=== PATIENT | female | born 1980 | race Caucasian/White ===

== ENCOUNTER → 2016-10-28 | Outpatient (CLI) | payer MEDICAID ==
[2016-10-28 15:11] LABS: Basophils % (A) 0 %; CH 30.4; CHCM 34.5; Eosinophils # (A) 0.1 k/uL (0-0.7); Eosinophils % (A) 1 %; HCT 41.6 % (34.0-46.0); HDW 2.73; HGB 14.2 gm/dL (11.4-16.0); Luc # (Auto) 0.21; Luc % (Auto) 3; Lymphocytes # (A) 1.8 k/uL (1.0-4.8); Lymphocytes % (A) 21 %; MCH 30.2 pg (25.0-35.0); MCHC 34.2 g/dL (31.0-37.0); MCV 88.3 fL (80.0-100.0); Mean Platelet Volume 7.4; Monocytes # (A) 0.4 k/uL (0-1.0); Monocytes % (A) 5 %; Neutrophils # (A) 6.1 k/uL (1.3-7.7); Neutrophils % (A) 70 %; RBC 4.71 m/uL (3.80-5.40); RDW 13.7 % (11.5-15.5); WBC 8.6 k/uL (3.8-10.6); WBC (Perox) 8.44
== END | disposition home or self-care (01) ==
LOC: LABPAT 14:34
PROVIDERS: ATTEND Obstetrics & Gynecology
DX: Z01.812 Encounter for preprocedural laboratory examination (principal)
CPT/HCPCS: 85025

== ENCOUNTER 2016-10-31 06:49 | Day surgery (SDC) | payer MEDICAID ==
[2016-10-29 12:57] VITALS: BMI 42.4
--- NOTE | 2016-10-30 09:46 | P.HPOB ---
History of Present Illness H&P Date: 10/30/16 Chief Complaint: Menorrhagia 36-year-old female presents for D&C, hysteroscopy, endometrial ablation with NovaSure due to menorrhagia. Review of Systems All systems: negative Constitutional: Denies chills, Denies fever Eyes: denies blurred vision, denies pain Ears, nose, mouth and throat: Denies headache, Denies sore throat Cardiovascular: Denies chest pain, Denies shortness of breath Respiratory: Denies cough Gastrointestinal: Denies abdominal pain, Denies diarrhea, Denies nausea, Denies vomiting Genitourinary: Denies dysuria, Denies hematuria Musculoskeletal: Denies myalgias Integumentary: Denies pruritus, Denies rash Neurological: Denies numbness, Denies weakness Psychiatric: Denies anxiety, Denies depression Endocrine: Denies fatigue, Denies weight change Past Medical History Past Medical History: GERD/Reflux, Hyperlipidemia, Pneumonia Additional Past Medical History / Comment(s): MIGRAINES, HX OVARIAN CYSTS, one seizure 15-20 yrs ago from xanax, hx ulcer, hx small hiatal hernia, IBS, "borderline diabetic-diet control", abnormal vaginal bleeding History of Any Multi-Drug Resistant Organisms: None Reported Past Surgical History: Cholecystectomy, Orthopedic Surgery Additional Past Surgical History / Comment(s): EGD and colonoscopy, RT KNEE SURG X2, abdonminal LIPO SUCTION, SEPTOPLASTY/SINUS SURG . Past Anesthesia/Blood Transfusion Reactions: Motion Sickness Additional Past Anesthesia/Blood Transfusion Reaction / Comment(s): vomiting from gag reflex(needs throat spray) and jumped off the table with colonoscopy, Past Psychological History: No Psychological Hx Reported Additional Psychological History / Comment(s): . Smoking Status: Current every day smoker Past Alcohol Use History: Rare Additional Past Alcohol Use History / Comment(s): started AGE 14(1993) SMOKED OFF & ON- currently smokes 3-4 cigarettes daily Past Drug Use History: None Reported - Past Family History Father Family Medical History: Osteoarthritis (OA) Additional Family Medical History / Comment(s): chronic back problems Mother Family Medical History: No Reported History Medications and Allergies Home Medications Medication Instructions Recorded Confirmed Type Ibuprofen [Motrin] 400 mg PO Q6HR PRN 06/30/14 10/29/16 History Omeprazole [PriLOSEC] 20 mg PO 1730 06/30/14 10/29/16 History Ondansetron [Zofran] 4 mg PO Q8HR PRN 06/30/14 10/29/16 History Hydrocodone/Acetaminophen 1 tab PO TID PRN 01/01/15 10/29/16 History [Hydrocodon-Acetaminoph 7.5-325] Loratadine [Claritin] 10 mg PO 1730 01/01/15 10/29/16 History Montelukast [Singulair] 10 mg PO DAILY 01/01/15 10/29/16 History Dicyclomine [Bentyl] 10 mg PO BID 10/29/16 10/29/16 History Gemfibrozil [Lopid] 600 mg PO AC-BID 10/29/16 10/29/16 History Ranitidine HCl [Zantac] 150 mg PO BID 10/29/16 10/29/16 History Allergies Allergy/AdvReac Type Severity Reaction Status Date / Time influenza virus vaccine, Allergy Severe Swelling Verified 10/29/16 12:41 specific [influenza virus vacc,specific] pertussis vaccine,fluid Allergy Severe Swelling Verified 10/29/16 12:41 Sulfa (Sulfonamide Allergy Severe Anaphylaxis, Verified 10/29/16 12:41 Antibiotics) Throat closes sulfamethoxazole Allergy Severe Anaphylaxis, Verified 10/29/16 12:41 [From Bactrim] Throat closes trimethoprim [From Bactrim] Allergy Severe Anaphylaxis, Verified 10/29/16 12:41 Throat closes Exam Osteopathic Statement: *. No significant issues noted on an osteopathic structural exam other than those noted in the History and Physical/Consult. Heart: Regular rate and rhythm Lungs: Clear to auscultation bilaterally Abdomen: Soft, nontender Extremities: Negative Homans sign Assessment and Plan (1) Menorrhagia Status: Acute Plan: 1. D&C, hysteroscopy, endometrial ablation with NovaSure
[~2016-10-31 06:49] MED LIST: DEXAMETHASONE SOD PHOSPHATE 10 MG/ML 1 ML VIAL IV ONE; HYDROmorphone 1 MG/ML 1 ML SYRINGE IVP PRN; LACTATED RINGERS 1,000 ML IV SCH; MIDAZOLAM 2 MG/2 ML VIAL IV PRN; ONDANSETRON 4 MG/2 ML VIAL IVP ONE; Pre Op ABX Message 1 EACH MISC MISCELLANE ONE; SCOPOLAMINE 1.5MG/72HR PATCH TRANSDERM ONE
[2016-10-31 07:27] LABS: Glucose,Whole Blood 118 mg/dL (75-99)
[2016-10-31] MEDS ORDERED: MIDAZOLAM 2 MG/2 ML VIAL ONE (07:49)
[2016-10-31] MEDS ORDERED: fentaNYL (PF) 50 MCG/ML 2 ML AMP ONE (07:49)
[2016-10-31] MEDS ORDERED: PROPOFOL 10 MG/ML 20 ML VIAL IV ONE (07:49)
[2016-10-31] MEDS ORDERED: SUCCINYLCHOLINE CHLORIDE 100 MG/5 ML SYR IV ONE (07:49)
--- NOTE | 2016-10-31 08:30 | P.OP ---
Date of Procedure: 10/31/16 Preoperative Diagnosis: 1. Menorrhagia Postoperative Diagnosis: 1. Menorrhagia Procedure(s) Performed: D&C hysteroscopy Anesthesia: COLIN Surgeon: Anu Luu Estimated Blood Loss (ml): 5 Urine output (ml): 20 Pathology: other (uterine currettings) Condition: stable Disposition: PACU Operative Findings: cervical stenosis Description of Procedure: Patient is taken the operating room where general anesthesia was obtained without difficulty. She is prepped and draped in normal sterile fashion dorsal lithotomy position, legs placed In stirrups. Bladder was drained of all urine. Weighted speculum placed in the vagina and the anterior lip the cervix was grasped with single-tooth tenaculum. The uterus was attempted to be sounded but I could not pass the sound through the internal cervical os. The smallest cervical dilator was used to attempt to find the internal cervical os to start dilating. This was unsuccessful. Hysteroscopy was used to try and hydrodilated was also unsuccessful. I went back to the Hegar dilators and attempted to dilate again. I did get through and dilated to #6 Hegar dilator but when I performed her hysteroscopy was found that I was in the abdomen. Perforation was immediately identified. Sharp curet was gently used to obtain some endocervical possible endometrial curettings, careful not to go into the abdominal cavity. Rest of the procedure was abandoned. When I was attempting to dilate her cervix the single-tooth tenaculum did cause a laceration in the anterior lip. This was repaired with 2-0 Vicryl in a running locked fashion. Excellent hemostasis was achieved. Tolerated the procedure well. Sponge and instrument counts are correct 2. She was taken to recovery in stable condition.
[2016-10-31] MEDS ORDERED: KETOROLAC 30 MG/ML 1 ML VIAL IVP ONE (08:42)
[2016-10-31 09:00] VITALS: TEMP 97
[2016-10-31 09:02] VITALS: RESP 16
[2016-10-31 09:36] VITALS: BP 132/93; PULSE 86
== END 2016-10-31 09:48 | disposition home or self-care (01) ==
LOC: OR 06:49
PROVIDERS: ATTEND Obstetrics & Gynecology
DX: N85.9 Noninflammatory disorder of uterus, unspecified (principal); N88.2 Stricture and stenosis of cervix uteri; N92.0 Excessive and frequent menstruation with regular cycle; K21.9 Gastro-esophageal reflux disease without esophagitis; E78.5 Hyperlipidemia, unspecified; R73.03 Prediabetes; F17.210 Nicotine dependence, cigarettes, uncomplicated; Z79.899 Other long term (current) drug therapy; Z88.2 Allergy status to sulfonamides; Z88.7 Allergy status to serum and vaccine
CPT/HCPCS: 81025; 88305; 58558; J2250; J1100; J2405; J3010; J1885; J1170; J0330; J2704

== ENCOUNTER 2017-01-22 05:53 | Observation (INO) | payer MEDICAID ==
[2017-01-16 12:09] VITALS: BMI 41.5
--- NOTE | 2017-01-21 16:48 | P.HPOB ---
History of Present Illness H&P Date: 01/21/17 Chief Complaint: menorrhagia 36 year old G0 presents for TLH and BL salpingectomy with da jared due to menorrhagia. Review of Systems All systems: negative Constitutional: Denies chills, Denies fever Eyes: denies blurred vision, denies pain Ears, nose, mouth and throat: Denies headache, Denies sore throat Cardiovascular: Denies chest pain, Denies shortness of breath Respiratory: Denies cough Gastrointestinal: Denies abdominal pain, Denies diarrhea, Denies nausea, Denies vomiting Genitourinary: Denies dysuria, Denies hematuria Musculoskeletal: Denies myalgias Integumentary: Denies pruritus, Denies rash Neurological: Denies numbness, Denies weakness Psychiatric: Denies anxiety, Denies depression Endocrine: Denies fatigue, Denies weight change Past Medical History Past Medical History: GERD/Reflux, Osteoarthritis (OA) Additional Past Medical History / Comment(s): MIGRAINES, SEASONAL ALLERGIES, 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 History of Any Multi-Drug Resistant Organisms: None Reported Past Surgical History: Cholecystectomy, Orthopedic Surgery Additional Past Surgical History / Comment(s): EGD, RT KNEE SURG X2, ABD.LIPO SUCTION ., SEPTOPLASTY & SINUS SURG . Past Anesthesia/Blood Transfusion Reactions: Previous Problems w/ Anesthesia, Motion Sickness Additional Past Anesthesia/Blood Transfusion Reaction / Comment(s): AFTER PTS D& C DECEMBER 2016 SHE HAD STIFF, PAINFUL MUSCLES POST ANESTH. Past Psychological History: Anxiety, Depression Additional Psychological History / Comment(s): NO PROBLEMS NOW. Smoking Status: Current some day smoker Past Alcohol Use History: None Reported Past Drug Use History: None Reported - Past Family History Father Family Medical History: Osteoarthritis (OA) Additional Family Medical History / Comment(s): chronic back problems Mother Family Medical History: Diabetes Mellitus, Hyperlipidemia, Hypertension Medications and Allergies Home Medications Medication Instructions Recorded Confirmed Type Ibuprofen [Motrin] 400 mg PO Q6HR PRN 06/30/14 01/16/17 History Omeprazole [PriLOSEC] 20 mg PO 1730 06/30/14 01/16/17 History Ondansetron [Zofran] 4 mg PO Q8HR PRN 06/30/14 01/16/17 History Hydrocodone/Acetaminophen 1 tab PO TID PRN 01/01/15 01/16/17 History [Hydrocodon-Acetaminoph 7.5-325] Loratadine [Claritin] 10 mg PO 1730 01/01/15 01/16/17 History Montelukast [Singulair] 10 mg PO DAILY 01/01/15 01/16/17 History Dicyclomine [Bentyl] 10 mg PO BID 10/29/16 01/16/17 History Gemfibrozil [Lopid] 600 mg PO AC-BID 10/29/16 01/16/17 History Ranitidine HCl [Zantac] 150 mg PO BID 10/29/16 01/16/17 History Allergies Allergy/AdvReac Type Severity Reaction Status Date / Time influenza virus vaccine, Allergy Severe Swelling Verified 01/16/17 12:00 specific [influenza virus vacc,specific] pertussis vaccine,fluid Allergy Severe Swelling Verified 01/16/17 12:00 Sulfa (Sulfonamide Allergy Severe Anaphylaxis, Verified 01/16/17 12:00 Antibiotics) Throat closes sulfamethoxazole Allergy Severe Anaphylaxis, Verified 01/16/17 12:00 [From Bactrim] Throat closes trimethoprim [From Bactrim] Allergy Severe Anaphylaxis, Verified 01/16/17 12:00 Throat closes Exam Osteopathic Statement: *. No significant issues noted on an osteopathic structural exam other than those noted in the History and Physical/Consult. HEart: RRR Lungs: CTAB Abdomen: soft, nontender Extremeties: neg gaby's Assessment and Plan (1) Menorrhagia Status: Acute Plan: 1. TLH and bilateral salpingectomy with da jraed
[~2017-01-22 05:53] MED LIST changes: +LIDOCAINE 1% 20 ML VIAL (10MG/ML) FOR IV START INTRADERMA PRN; -Pre Op ABX Message 1 EACH MISC MISCELLANE ONE; +ceFAZolin 2 GM in SODIUM CHLORIDE 0.9% 100 ML IVPB ONE
[2017-01-22] MEDS ORDERED: LACTATED RINGERS 1,000 ML IV ONE ×2 (06:29→08:41)
[2017-01-22] MEDS ORDERED: ALBUTEROL INHALER 60 PUFF/8 GM INHALER INHALATION ONE (07:21)
[2017-01-22] MEDS ORDERED: ACETAMINOPHEN IV (For NPO) 1,000 MG/100 ML VIAL ONE (07:21)
[2017-01-22] MEDS ORDERED: ONDANSETRON 4 MG/2 ML VIAL ONE (07:21)
[2017-01-22] MEDS ORDERED: LIDOCAINE 1% INJ 10MG/ML (20 ML MDV) ONE (07:21)
[2017-01-22] MEDS ORDERED: NEOSTIGMINE 1 MG/ML 10 ML VIAL ONE (07:21)
[2017-01-22] MEDS ORDERED: SUCCINYLCHOLINE CHLORIDE VIAL 200 MG/10 ML VIAL IV ONE (07:21)
[2017-01-22] MEDS ORDERED: fentaNYL (PF) 50 MCG/ML 2 ML AMP ONE (07:21)
[2017-01-22] MEDS ORDERED: ROCURONIUM BROMIDE 10 MG/ML 10 ML VIAL IV ONE (07:21)
[2017-01-22] MEDS ORDERED: MIDAZOLAM 2 MG/2 ML VIAL ONE (07:21)
[2017-01-22] MEDS ORDERED: GLYCOPYRROLATE 0.2 MG/ML 2 ML VIAL ONE (07:21)
[2017-01-22] MEDS ORDERED: HYDROmorphone (PF) 1 MG/ML ONE (07:21)
[2017-01-22] MEDS ORDERED: LABETALOL 5 MG/ML VIAL MDV ONE (07:21)
[2017-01-22] MEDS ORDERED: PROPOFOL 10 MG/ML 20 ML VIAL IV ONE (07:21)
[2017-01-22] MEDS ORDERED: BUPIVACAINE (PF) 0.25% 30 ML VIAL SQ ONE (07:53)
--- NOTE | 2017-01-22 09:32 | P.OP ---
Date of Procedure: 01/22/17 Preoperative Diagnosis: 1. Menorrhagia Postoperative Diagnosis: 1. Menorrhagia Procedure(s) Performed: Total laparoscopic hysterectomy bilateral salpingectomy using da Jeaneth Implants: Anesthesia: RAMSESA Surgeon: Anu Luu Earrings Fabricator #1: Marques Johnson Estimated Blood Loss (ml): 5 IV fluids (ml): 1,000 Urine output (ml): 200 Pathology: other (Uterus, cervix, bilateral tubes) Condition: stable Disposition: PACU Indications for Procedure: Operative Findings: Normal uterus, normal fallopian tubes, normal ovaries Description of Procedure: Patient taken the operating room where general anesthesia was obtained without difficulty. She is prepped and draped in normal sterile fashion dorsal lithotomy position, legs placed in the Wenceslao stirrups. Weighted speculum placed in the vagina and the anterior lip the cervix was grasped with single- tooth tenaculum. The uterus sounded to 8 cm and the cervix diameter was 2.5 cm. The appropriate manipulator tip and ring were placed on the Kandy manipulator. The Kandy manipulator was then placed in the uterus. Arzola catheter was also placed. Attention was then turned to the abdomen and gloves were changed. A 5 mm supraumbilical incision was made the scalpel and a 5 mm optical trocar was placed under direct visualization. 10 cm to the right of this and 2 cm down a 5 mm incision was made and 8 mm da Jeaneth port was placed under direct visualization. Same measurements on the opposite side of the patient's abdomen, the 5 mm incision was made and 8 mm da Jeaneth port was placed under direct visualization. In the left upper quadrant a 10 mm incision was made and a 10 mm optical trocar was placed under direct visualization. The 5 mm optical trocar was then replaced with the 8 mm da Jeaneth camera port. The robot was docked on patient's right side. The camera was introduced and then the monopolar curved scissor and Maryland bipolar placed under direct visualization. I broke scrub and went to the physician console. The left fallopian tube was elevated and the mesosalpinx was cauterized with the Maryland bipolar and cut with monopolar curved scissors. The round ligament and utero-ovarian ligament were then cauterized with the Maryland bipolar and cut with the monopolar curved scissors. The posterior leaf of the broad ligament was taken down using the monopolar curved scissors. Anterior leaf of the broad ligament was then taken down using the monopolar curved scissors. The uterine artery was cauterized with the Maryland bipolar and cut with monopolar curved scissors. The bladder flap was then started using the monopolar curved scissors. Attention was then turned to the right side of the patient's anatomy and the right fallopian tube was elevated and the right mesosalpinx was cauterized with the Maryland bipolar and cut with monopolar curved scissors. The right round ligament and right utero-ovarian ligament was cauterized with the [place] bipolar and cut with monopolar curved scissors. Posterior leaf of the broad ligament was taken down using the monopolar curved scissors and the anterior leaf was taken down using the monopolar curved scissors. The uterine artery was cauterized the Maryland bipolar cut with monopolar curved scissors. The bladder flap was then finished on this side. Anterior colpotomy was made using the monopolar curved scissors. The rest of the uterus was from the vaginal cuff by following the ring around with the monopolar curved scissors through the uterosacral ligaments back to the anterior portion. Once the uterus and cervix were amputated they were pulled through the vaginal cuff. Hemostasis was assured. The instruments were changed for the Cardier forcep and the riana suture cut. The vaginal cuff was then closed using O stratafix barbed suture in a running fashion. Hemostasis was again assured and the pelvis was irrigated. All instruments were removed from the abdomen and the robot was undocked. I scrubbed back in to perform a cystoscopy. There were jets from both ureteral orifices. The abdominal incisions were closed with 4-0 Vicryl in a subcuticular fashion. Patient tolerated the procedure well, sponge and instrument counts correct 2 and she was taken to recovery room in stable condition condition
[2017-01-22] MEDS ORDERED: PROMETHAZINE INJ 25 MG/ML 1 ML VIAL IVPB ONE (10:00)
[2017-01-22] MEDS ORDERED: LEVALBUTEROL NEB 1.25 MG/3 ML AMP INHALATION ONE (10:02)
[2017-01-22] MEDS ORDERED: LABETALOL 5 MG/ML VIAL MDV IVP ONE (10:03)
[2017-01-22] MEDS ORDERED: ENALAPRILAT 1.25 MG/ML 1 ML VIAL IVP ONE (10:08)
--- NOTE | 2017-01-22 10:33 | XR ---
EXAMINATION TYPE: XR chest 1V DATE OF EXAM: 01/22/2017 COMPARISON: Postop HISTORY: Hematemesis TECHNIQUE: Single frontal view of the chest is obtained. FINDINGS: Patient is rotated. There are overlying cardiac leads. Interstitium appears somewhat promi nent. No pneumothorax or pleural effusion evident. Retrocardiac increased density is noted. IMPRESSION: Correlate for left lower lobe atelectasis versus edema or pneumonia. There is a componen t of interstitial lung disease, consider interstitial edema. Follow-up recommended.
[2017-01-22] MEDS ORDERED: Acetaminophen-Codeine 300-30mg TAB PO PRN ×2 (11:08)
--- NOTE | 2017-01-22 11:24 | P.PN ---
Progress Note - Text 11:15 anesthesia. Patient is status post robotic-assisted laparoscopic RAYA/ BSO. Patient had a great deal of nausea and retching in the operating room postextubation with her protective airway reflexes obviously intact. A chest x- ray was obtained in the recovery room to rule out aspiration. The patient was also given and Xopenex updraft and hypertension was treated with Vasotec 1.25 mg and Trandate 10 mg IV to good effect. Chest x-ray was poorly penetrated patient was rotated and there was no definite evidence of aspiration or interstitial edema although these were entertained by the radiologist reading. Currently patient's postoperative discomfort is well-controlled, she is no longer nauseated, sats are in the upper 90s on room air and she is not tachypneic. Plan: Transfer to Peds for routine post surgical care.
[2017-01-22] MEDS: LACTATED RINGERS 1,000 ML IV SCH ×2 (12:13→21:17)
[2017-01-22] MEDS: KETOROLAC 30 MG/ML 1 ML VIAL IVP PRN ×2 (12:23→18:20)
[2017-01-22] MEDS: DICYCLOMINE 10 MG CAP PO SCH ×2 (12:24→21:17)
[2017-01-22] MEDS: ONDANSETRON 4 MG/2 ML VIAL IVP PRN ×2 (16:48→22:22)
[2017-01-22] MEDS: GEMFIBROZIL 600 MG TAB PO SCH (16:49)
[2017-01-22] MEDS ORDERED: PANTOPRAZOLE 40 MG TABLET PO SCH (17:30)
[2017-01-22] MEDS ORDERED: LORATADINE 10 MG TAB PO SCH (17:30)
[2017-01-22] MEDS ORDERED: ALPRAZolam 0.5 MG TAB PO ONE (21:00)
[2017-01-22] MEDS ORDERED: SENNOSIDES-DOCUSATE SODIUM 1 EACH TAB PO SCH (21:00)
[2017-01-22] MEDS ORDERED: FAMOTIDINE 20 MG TAB PO SCH (21:00)
[2017-01-22] MEDS: HYDROcodone/APAP 5-325MG 1 EACH TAB PO PRN (21:03)
[2017-01-22 21:27] VITALS: PULSE 84
[2017-01-22 23:46] VITALS: BP 115/70; RESP 18; TEMP 98
[2017-01-23] MEDS: KETOROLAC 30 MG/ML 1 ML VIAL IVP PRN (04:13)
--- NOTE | 2017-01-23 07:25 | P.DS ---
Providers Date of admission: 01/22/17 23:22 Expected date of discharge: 01/23/17 Attending physician: Anu Luu Primary care physician: Stated None - Discharge Diagnosis(es) (1) Menorrhagia Current Visit: No Status: Resolved (2) History of robot-assisted laparoscopic hysterectomy Current Visit: Yes Status: Acute Hospital Course: Patient presented for TLH B/L salpingectomy with da jared for menorrhagia. She underwent this procedure without complication. She is having a little nausea but tolerating reg diet and passing flatus. Ambulating and voiding without difficulty. She will be discharged home POD #1 in stable condition to follow up with me in 3 weeks. Plan - Discharge Summary New Discharge Prescriptions: New HYDROcodone/APAP 7.5-325MG [[place] 7.5-325] 1 tab PO Q4H PRN #30 tab PRN Reason: Pain Ibuprofen [Motrin] 600 mg PO Q6HR PRN #30 tab PRN Reason: Mild Pain Or Fever >= 100.5 No Action Ondansetron [Zofran] 4 mg PO Q8HR PRN PRN Reason: Nausea Omeprazole [PriLOSEC] 20 mg PO DAILY Ibuprofen [Motrin] 400 mg PO Q6HR PRN PRN Reason: Pain Montelukast [Singulair] 10 mg PO DAILY Loratadine [Claritin] 10 mg PO DAILY Hydrocodone/Acetaminophen [Hydrocodon-Acetaminoph 7.5-325] 1 tab PO TID PRN PRN Reason: Pain Dicyclomine [Bentyl] 10 mg PO BID Gemfibrozil [Lopid] 600 mg PO AC-BID Ranitidine HCl [Zantac] 150 mg PO BID Discharge Medication List Ibuprofen [Motrin] 400 mg PO Q6HR PRN 06/30/14 [History] Omeprazole [PriLOSEC] 20 mg PO DAILY 06/30/14 [History] Ondansetron [Zofran] 4 mg PO Q8HR PRN 06/30/14 [History] Hydrocodone/Acetaminophen [Hydrocodon-Acetaminoph 7.5-325] 1 tab PO TID PRN [History] Loratadine [Claritin] 10 mg PO DAILY 01/01/15 [History] Montelukast [Singulair] 10 mg PO DAILY 01/01/15 [History] Dicyclomine [Bentyl] 10 mg PO BID 10/29/16 [History] Gemfibrozil [Lopid] 600 mg PO AC-BID 10/29/16 [History] Ranitidine HCl [Zantac] 150 mg PO BID 10/29/16 [History] HYDROcodone/APAP 7.5-325MG [[place] 7.5-325] 1 tab PO Q4H PRN #30 tab 01/23/17 [Rx ] Ibuprofen [Motrin] 600 mg PO Q6HR PRN #30 tab 01/23/17 [Rx] Follow up Appointment(s)/Referral(s): Anu Luu DO [Doctor of Osteopathic Medicine] - 1 Week Patient Instructions/Handouts: *[facility] - (Anesthesia) Discharge Instructions Outpatient Surgery, *[facility] - Scopalamine Patch Instructions Discharge Disposition: HOME SELF-CARE
[2017-01-23 07:36] LABS: Basophils % (A) 0 %; CH 29.2; CHCM 33.4; Eosinophils # (A) 0.1 k/uL (0-0.7); Eosinophils % (A) 1 %; HCT 36.1 % (34.0-46.0); HDW 2.62; HGB 12.3 gm/dL (11.4-16.0); Luc # (Auto) 0.18; Luc % (Auto) 2; Lymphocytes # (A) 2.5 k/uL (1.0-4.8); Lymphocytes % (A) 27 %; MCH 29.9 pg (25.0-35.0); MCV 87.8 fL (80.0-100.0); Mean Platelet Volume 7.8; Monocytes # (A) 0.3 k/uL (0-1.0); Monocytes % (A) 4 %; Neutrophils # (A) 6.2 k/uL (1.3-7.7); Neutrophils % (A) 67 %; RBC 4.12 m/uL (3.80-5.40); RDW 13.9 % (11.5-15.5); WBC 9.3 k/uL (3.8-10.6); WBC (Perox) 9.46
[2017-01-23] MEDS: GEMFIBROZIL 600 MG TAB PO SCH (07:56)
[2017-01-23] MEDS: HYDROcodone/APAP 5-325MG 1 EACH TAB PO PRN (08:02)
[2017-01-23] MEDS ORDERED: MONTELUKAST 10 MG TAB PO SCH (09:00)
== END 2017-01-23 08:45 | disposition home or self-care (01) ==
LOC: OR 05:53 → 6PED 09:52 → OR 23:21 → 6PED 23:22
PROVIDERS: ADMIT Obstetrics & Gynecology; ATTEND Obstetrics & Gynecology
DX: D25.2 Subserosal leiomyoma of uterus (principal); N92.0 Excessive and frequent menstruation with regular cycle; N84.0 Polyp of corpus uteri; I97.3 Postprocedural hypertension; R11.0 Nausea; K21.9 Gastro-esophageal reflux disease without esophagitis; E78.00 Pure hypercholesterolemia, unspecified; M19.90 Unspecified osteoarthritis, unspecified site; Z79.899 Other long term (current) drug therapy; Z88.1 Allergy status to other antibiotic agents; Z88.2 Allergy status to sulfonamides; Z88.7 Allergy status to serum and vaccine; F17.210 Nicotine dependence, cigarettes, uncomplicated
CPT/HCPCS: 58571; S2900; 71010; 81025; 85025; 86850; 86900; 86901; 88307

== ENCOUNTER → 2017-11-12 | Outpatient (CLI) | payer MEDICAID ==
--- NOTE | 2017-11-12 15:08 | ECHOS ---
STRESS ECHOCARDIOGRAM INDICATIONS: Chest pain. BASELINE HEART RATE: 89 BASELINE BLOOD PRESSURE: 110/79 MAXIMUM HEART RATE: 164 MAXIMUM BLOOD PRESSURE: 185/70 85% MPHR: 155 100% MPHR: 182 METS: 7.9 MAXIMUM STAGE REACHED: II TOTAL EXERCISE TIME: 6:30 CLINICAL INFORMATION: STRESS DATA: Pretesting physical examination showed a heart rate of 89, pressure is 110/79 mmHg. Baseline EKG showed sinus mechanism. The patient exercised on the treadmill according to Giovanni protocol for a total of 6 minutes and 30 seconds and achieved 7.9 METS with max heart rate was 164, which is about 90% of maximum predicted heart rate. Maximum blood pressure was 185/70. Clinically, the patient did not have any symptoms of chest pain or discomfort. The EKG did not show any significant ST or T- wave abnormalities consistent with ischemia. ECHOCARDIOGRAM IMAGES: On echocardiogram images from parasternal long axis view, parasternal short axis view, apical 4 chambers and apical 2 chamber view were obtained as a baseline images, at the peak of the heart rate as well as on recovery. The echocardiogram images showed good augmentation in the left ventricular systolic function without any evidence of wall motion abnormalities consistent with ischemia. CONCLUSION: 1. Good exercise tolerance. 2. Normal EKG in response to exercise. 3. Normal echocardiogram in response to exercise. 4. Essentially normal stress echocardiogram. MMODL / IJN: [id number] /
== END | disposition home or self-care (01) ==
LOC: RADNMMAIN 09:00
PROVIDERS: ATTEND Internal Medicine Geriatric Medicine
DX: R07.9 Chest pain, unspecified (principal)
CPT/HCPCS: 93351

== ENCOUNTER → 2018-12-03 | Outpatient (CLI) | payer MEDICAID ==
--- NOTE | 2018-12-03 13:04 | XR ---
Right wrist HISTORY: Pain or graph 4 views of the right wrist Bone mineralization, joint spaces and alignment are maintained. IMPRESSION: No fracture or dislocation.
== END | disposition home or self-care (01) ==
LOC: RADXRMAIN 11:00
PROVIDERS: ATTEND Internal Medicine Geriatric Medicine
DX: M25.531 Pain in right wrist (principal)

== ENCOUNTER 2019-01-14 11:41 | Day surgery (SDC) | payer MEDICAID ==
[2019-01-13 10:24] VITALS: BMI 40.7
[~2019-01-14 11:41] MED LIST changes: -DEXAMETHASONE SOD PHOSPHATE 10 MG/ML 1 ML VIAL IV ONE; -HYDROmorphone 1 MG/ML 1 ML SYRINGE IVP PRN; -MIDAZOLAM 2 MG/2 ML VIAL IV PRN; -ONDANSETRON 4 MG/2 ML VIAL IVP ONE; -SCOPOLAMINE 1.5MG/72HR PATCH TRANSDERM ONE; -ceFAZolin 2 GM in SODIUM CHLORIDE 0.9% 100 ML IVPB ONE
[2019-01-14] MEDS ORDERED: LACTATED RINGERS 1,000 ML IV ONE (12:27)
[2019-01-14 12:35] VITALS: TEMP 98.4
[2019-01-14] MEDS ORDERED: ONDANSETRON 4 MG/2 ML VIAL IVP ONE (12:45)
[2019-01-14] MEDS ORDERED: MIDAZOLAM 2 MG/2 ML VIAL ONE (12:48)
[2019-01-14] MEDS ORDERED: LIDOCAINE 1% INJ 10MG/ML (20 ML MDV) ONE (12:48)
[2019-01-14] MEDS ORDERED: PROPOFOL 10 MG/ML 20 ML VIAL IV ONE (12:48)
--- NOTE | 2019-01-14 13:00 | P.PCN ---
Date of Procedure: 01/14/19 Procedure(s) Performed: BRIEF HISTORY: Patient is a 38-year-old, pleasant, white female, scheduled for an upper endoscopy as a part of evaluation of persistent history of GERD lately has been having intermittent nausea vomiting almost on a daily basis. She does complain of epigastric discomfort but denies any heartburn. Presently on Nexium 20 mg daily and Zantac as needed and remains symptomatic.. PROCEDURE PERFORMED: Esophagogastroduodenoscopy with biopsy. PREOPERATIVE DIAGNOSIS: GERD/intermittent episodes of nausea vomiting of several months duration. IV sedation per anesthesia. PROCEDURE: After informed consent was obtained, the patient was brought into the endoscopy unit. IV sedation was administered by Anesthesia under continuous monitoring. Initially the Olympus GIF-140 video endoscope was inserted into the mouth. Esophagus intubated without any difficulty. It was gradually advanced into the stomach and duodenum and carefully examined. The bulb and the second part of the duodenum appeared normal. His were done from the duodenum to rule out celiac disease. The scope at this time was withdrawn to the stomach, adequately insufflated with air, and upon careful examination, mucosa of the antrum, had patchy areas of erythema and biopsies were done from this area. The body, cardia and the fundus appeared normal. The scope was then withdrawn into the esophagus. The GE junction was located at 39 cm from the incisors. Small sliding Hiatal hernia noted. The esophagus appeared normal. There were no erosions or ulcerations seen, biopsies were done from the distal esophagus and the patient tolerated the procedure well. IMPRESSION: 1. Minimal antral gastritis. 2. Small sliding Hiatal hernia but no evidence of esophagitis or Fitzgerald's esophagus. RECOMMENDATIONS: The findings of this examination were discussed with the patient as well as a family. She was advised to follow with the biopsy results. She was advised to increase the Nexium to 20 mg twice daily half hour before breakfast and dinnertime and follow antireflux measures. She can take Zantac at bedtime if needed..
[2019-01-14 13:20] VITALS: BP 105/75; PULSE 86; RESP 18
== END 2019-01-14 13:34 | disposition home or self-care (01) ==
LOC: ORWHC2ENDO 11:41
PROVIDERS: ATTEND Internal Medicine Gastroenterology
DX: K29.50 Unspecified chronic gastritis without bleeding (principal); K44.9 Diaphragmatic hernia without obstruction or gangrene; K21.9 Gastro-esophageal reflux disease without esophagitis; I10 Essential (primary) hypertension; M19.90 Unspecified osteoarthritis, unspecified site; Z79.899 Other long term (current) drug therapy; Z88.2 Allergy status to sulfonamides; Z88.7 Allergy status to serum and vaccine
CPT/HCPCS: 88305; 43239; J2250; J2405; J2001; J2704

== ENCOUNTER → 2020-06-26 | Outpatient (CLI) | payer OTHER ==
[2020-06-26 14:34] LABS: Basophils # (A) 0.1 k/uL (0-0.2); Basophils % (A) 1 %; Eosinophils # (A) 0.2 k/uL (0-0.7); Eosinophils % (A) 3 %; HCT 44.6 % (34.0-46.0); HGB 14.7 gm/dL (11.4-16.0); Lymphocytes # (A) 1.9 k/uL (1.0-4.8); Lymphocytes % (A) 33 %; MCH 31.9 pg (25.0-35.0); MCHC 32.9 g/dL (31.0-37.0); MCV 96.8 fL (80.0-100.0); Mean Platelet Volume 7.8; Monocytes # (A) 0.3 k/uL (0-1.0); Monocytes % (A) 5 %; Neutrophils # (A) 3.4 k/uL (1.3-7.7); Neutrophils % (A) 57 %; Platelet Count 278 k/uL (150-450); RBC 4.61 m/uL (3.80-5.40); RDW 12.7 % (11.5-15.5); WBC 5.9 k/uL (3.8-10.6)
[2020-06-27 02:11] LABS: African American GFR (CKD) 106.1 (60.0-200.0); Albumin 4.3 g/dL (3.80-4.90); Albumin/Globulin Ratio 2.26 (1.60-3.17); Anion Gap 5.3 mmol/L (4.00-12.00); Calcium 9.2 mg/dL (8.7-10.3); Carbon Dioxide 26.7 mmol/L (21.6-31.8); Chol/HDL Ratio 3.74; Globulin 1.9 g/dL (1.6-3.3); Non-African American GFR(CKD) 91.6 (60.0-200.0); Potassium 4.1 mmol/L (3.5-5.5); Total Bilirubin 0.4 mg/dL (0.2-1.2); Total Protein 6.2 g/dL (6.2-8.2)
== END | disposition home or self-care (01) ==
LOC: LABWHC1 14:10
PROVIDERS: ATTEND Internal Medicine
DX: E78.5 Hyperlipidemia, unspecified (principal); D64.9 Anemia, unspecified
CPT/HCPCS: 36415; 80053; 80061; 85025

== ENCOUNTER → 2021-01-19 | Outpatient (CLI) | payer BC ==
[2021-01-19 16:26] LABS: HGB 15.1 g/dL (12.0-15.0); MCH 31.9 pg (27.0-32.0); MCHC 33.6 g/dL (32.0-37.0); MCV 94.9 fL (80.0-97.0); Mean Platelet Volume 10.9 fL (9.5-12.2); Platelet Count 245 X 10*3/uL (140-440); RBC 4.74 X 10*6/uL (4.10-5.20); RDW 12.4 % (11.5-14.5); WBC 5.81 X 10*3/uL (4.50-10.00)
[2021-01-19 18:46] LABS: African American GFR (CKD) 106.1 (60.0-200.0); Albumin 4.2 g/dL (3.80-4.90); Albumin/Globulin Ratio 1.75 (1.60-3.17); Anion Gap 7.2 mmol/L (4.00-12.00); BUN/Creat Ratio 13.75 Ratio (12.00-20.00); Calcium 9.6 mg/dL (8.7-10.3); Carbon Dioxide 24.8 mmol/L (21.6-31.8); Chol/HDL Ratio 3.73; Globulin 2.4 g/dL (1.6-3.3); LDL Cholesterol,Calculated 108.2 mg/dL (0.0-131.0); Magnesium 1.6 mg/dL (1.5-2.4); Non-African American GFR(CKD) 91.6 (60.0-200.0); Potassium 4.2 mmol/L (3.5-5.5); Total Bilirubin 0.4 mg/dL (0.2-1.2); Total Protein 6.6 g/dL (6.2-8.2); VLDL Calculation 14.8 mg/dL (5.00-40.00)
== END | disposition home or self-care (01) ==
LOC: LABWHC1 11:38
PROVIDERS: ATTEND Internal Medicine
DX: R42 Dizziness and giddiness (principal); E78.5 Hyperlipidemia, unspecified
CPT/HCPCS: 36415; 80053; 80061; 83735; 85027

== ENCOUNTER → 2022-05-01 | Outpatient (CLI) | payer BC ==
--- NOTE | 2022-05-02 07:47 | MM ---
Reason for Exam: Screening (asymptomatic). Patient History: Menarche at age 11. Hysterectomy at age 36. Risk Values: Kimberly 5 year model risk: 0.5%. NCI Lifetime model risk: 7.1%. Tissue Density: The breast tissue is heterogeneously dense. This may lower the sensitivity of mammography. Findings: Analyzed By CAD. There is no suspicious group of microcalcifications or new suspicious mass in either breast. Overall Assessment: Negative, BI-RAD 1 Management: Screening Mammogram of both breasts in 1 year. A clinical breast exam by your physician is recommended on an annual basis and results should be correlated with mammographic findings. Electronically signed and approved by: Agustin Gupta M.D. Radiologis
== END | disposition home or self-care (01) ==
LOC: RADMAMWWP 16:02
PROVIDERS: ATTEND Family Medicine
DX: Z12.31 Encounter for screening mammogram for malignant neoplasm of breast (principal)
CPT/HCPCS: 77063; 77067

== ENCOUNTER → 2023-12-10 | Outpatient (CLI) | payer OTHER ==
--- NOTE | 2023-12-10 10:19 | MM ---
Reason for Exam: Screening (asymptomatic). Last mammogram was performed 1 year(s) and 7 month(s) ago. Patient History: Menarche at age 11. Hysterectomy at age 36. Risk Values: Kimberly 5 year model risk: 0.6%. NCI Lifetime model risk: 7.1%. Prior Study Comparison: 05/01/2022 Bilateral MG 3D screening mammo w/cad, [facility]. Tissue Density: The breasts are heterogeneously dense, which may obscure small masses. Findings: Analyzed By CAD. There is no suspicious group of microcalcifications or new suspicious mass in either breast. Overall Assessment: Negative, BI-RAD 1 Management: Screening Mammogram of both breasts in 1 year. . Patient should continue monthly self-breast exams. A clinical breast exam by your physician is recommended on an annual basis. This exam should not preclude additional follow-up of suspicious palpable abnormalities. Note on Kimberly scores and lifetime risk: 1. A Kimberly score greater than 3% is considered moderate risk. If this is the case, consider specialist referral to assess eligibility for a risk reducing agent. 2. If overall lifetime risk for the development of breast cancer is 20% or higher, the patient may qualify for future screening with alternating mammogram and breast MRI. Electronically signed and approved by: Agustin Gupta M.D. Radiologis
== END | disposition home or self-care (01) ==
LOC: RADMAMWWP 12-03 07:14
PROVIDERS: ATTEND Family Medicine
DX: Z12.31 Encounter for screening mammogram for malignant neoplasm of breast (principal)
CPT/HCPCS: 77063; 77067